=== PATIENT | female | born 2000 | race African-American/Black ===

== ENCOUNTER 2022-11-18 21:22 | Emergency (ER) | payer OTHER ==
[2022-11-18 21:38] VITALS: BMI 32.1
[2022-11-18] MEDS ORDERED: SODIUM CHLORIDE 0.9% 500 ML INFUS.BAG IV ONE (22:00)
[2022-11-18] MEDS ORDERED: FAMOTIDINE 20 MG/50 ML IVPB 20 MG/50 ML MG IVPB ONE ×2 (22:00→23:06)
[2022-11-18] MEDS ORDERED: METOCLOPRAMIDE HCL INJECTION 10 MG/2 ML VIAL IVPUSH ONE (22:00)
[2022-11-18] MEDS ORDERED: METOCLOPRAMIDE HCL INJECTION 10 MG/2 ML VIAL ONE (23:06)
[2022-11-18 23:11] LABS: BASO % 0.3 % (0-2.0); HEMATOCRIT 39.8 % (32.4-45.2); HEMOGLOBIN 13.2 GM/dL (10.7-15.3); LYMPH % 11.3 % (8-40); MCH 23.7 pg (25.7-33.7); MCHC 33.1 g/dl (32.0-36.0); MEAN CELL VOLUME 71.4 fl (80-96); MEAN PLT VOLUME 8.1 fl (7.5-11.1); MONO % 4.5 % (3.8-10.2); NEUT % 83.9 % (42.8-82.8); PLATELET COUNT 273 10^3/uL (134-434); RBC 5.56 M/mm3 (3.60-5.2); RDW 17.2 % (11.6-15.6); WHITE BLOOD COUNT 7.7 K/mm3 (4.0-10.0)
[2022-11-18 23:56] LABS: POTASSIUM 4.1 mmol/L (3.5-5.1)
[2022-11-18 23:59] LABS: CALCIUM 9.6 mg/dL (8.5-10.1)
[2022-11-19] LABS: ALBUMIN 3.6 g/dl (3.4-5.0); BLOOD UREA NITROGEN 5.7 mg/dL (7-18)
[2022-11-19 00:03] LABS: CREATININE 0.6 mg/dL (0.55-1.3)
[2022-11-19 00:04] LABS: BILIRUBIN,TOTAL 0.5 mg/dL (0.2-1)
[2022-11-19 00:05] LABS: TOT PROT 7.4 g/dl (6.4-8.2)
[2022-11-19 00:35] LABS: EPI CELLS >36 /uL (0-25.1); HYALINE CASTS 1 /uL (0-3.1); PH,URINE 5.5 (5.0-8.0); URINE APPEARANCE CLEAR; URINE BACTERIA >9,000 /uL (0-1359); URINE BILIRUBIN NEGATIVE (NEGATIVE); URINE COLOR YELLOW; URINE GLUCOSE (UA) NEGATIVE (NEGATIVE); URINE KETONE 3+ (NEGATIVE); URINE LEUK ESTERASE NEGATIVE (NEGATIVE); URINE NITRITE POSITIVE (NEGATIVE); URINE PROTEIN TRACE (NEGATIVE); URINE RBC 8 /uL (0-23.9); URINE UROBILINOGEN 0.2 mg/dL (0.2-1.0); URINE WBC 21 /uL (0-25.8)
[2022-11-19 02:09] VITALS: RESP 16
[2022-11-19] MEDS ORDERED: CEFTRIAXONE 1 GM/50 ML BAG ONE (05:03)
[2022-11-19 05:53] VITALS: BP 105/51; PULSE 78; TEMP 98.9
== END 2022-11-19 06:15 | disposition home or self-care (01) ==
LOC: JER 21:22
PROC: 3E033GC Introduction of Other Therapeutic Substance into Peripheral Vein, Percutaneous Approach (ICD-10-PCS; principal; 2022-11-18)
PROC: 3E033GC Introduction of Other Therapeutic Substance into Peripheral Vein, Percutaneous Approach (ICD-10-PCS; 2022-11-18)
PROC: 3E033GC Introduction of Other Therapeutic Substance into Peripheral Vein, Percutaneous Approach (ICD-10-PCS; 2022-11-19)
DX: R53.1 Weakness (principal); R11.0 Nausea; O23.41 Unspecified infection of urinary tract in pregnancy, first trimester; O26.891 Other specified pregnancy related conditions, first trimester; R10.84 Generalized abdominal pain; Z3A.01 Less than 8 weeks gestation of pregnancy
CPT/HCPCS: 36415; 76705-TC; 76801-TC; 76815; 80053; 81003; 83690; 84702; 84703; 85025; 87086; 87186; 99284-25

== ENCOUNTER 2022-12-04 12:21 | Emergency (ER) | payer OTHER ==
[2022-12-04 12:26] VITALS: RESP 18; BMI 32.1
[2022-12-04] MEDS ORDERED: FAMOTIDINE 20 MG/50 ML IVPB 20 MG/50 ML MG IVPB ONE ×3 (13:32→18:22)
[2022-12-04 14:26] LABS: BASO % 0.4 % (0-2.0); EOS % 0.3 % (0-4.5); HEMATOCRIT 39.3 % (32.4-45.2); HEMOGLOBIN 13.1 GM/dL (10.7-15.3); LYMPH % 19.3 % (8-40); MCH 23.5 pg (25.7-33.7); MCHC 33.3 g/dl (32.0-36.0); MEAN CELL VOLUME 70.6 fl (80-96); MEAN PLT VOLUME 8.4 fl (7.5-11.1); MONO % 7.4 % (3.8-10.2); NEUT % 72.6 % (42.8-82.8); PLATELET COUNT 281 10^3/uL (134-434); RBC 5.57 M/mm3 (3.60-5.2); RDW 18.1 % (11.6-15.6); WHITE BLOOD COUNT 8.3 K/mm3 (4.0-10.0)
[2022-12-04 14:43] LABS: POTASSIUM 4.1 mmol/L (3.5-5.1)
[2022-12-04 14:45] LABS: CALCIUM 9.8 mg/dL (8.5-10.1)
[2022-12-04 14:46] LABS: ALBUMIN 3.8 g/dl (3.4-5.0); BLOOD UREA NITROGEN 6.1 mg/dL (7-18)
[2022-12-04 14:49] LABS: CREATININE 0.5 mg/dL (0.55-1.3)
[2022-12-04 14:50] LABS: BILIRUBIN,TOTAL 0.3 mg/dL (0.2-1)
[2022-12-04 14:51] LABS: TOT PROT 7.2 g/dl (6.4-8.2)
[2022-12-04 15:26] LABS: EPI CELLS 17 /uL (0-25.1); HYALINE CASTS 4 /uL (0-3.1); PH,URINE 5.5 (5.0-8.0); URINE APPEARANCE CLEAR; URINE BACTERIA 452 /uL (0-1359); URINE BILIRUBIN NEGATIVE (NEGATIVE); URINE COLOR YELLOW; URINE GLUCOSE (UA) NEGATIVE (NEGATIVE); URINE KETONE 3+ (NEGATIVE); URINE LEUK ESTERASE 3+ (NEGATIVE); URINE NITRITE NEGATIVE (NEGATIVE); URINE PROTEIN NEGATIVE (NEGATIVE); URINE RBC 11 /uL (0-23.9); URINE WBC 402 /uL (0-25.8)
[2022-12-04 18:15] VITALS: BP 96/70; PULSE 82; TEMP 97.6
[2022-12-04] MEDS ORDERED: SUCRALFATE 1 GM TABLET (FP) PO ONE (18:57)
[2022-12-04 19:04] LABS: EPI CELLS 15 /uL (0-25.1); HYALINE CASTS 3 /uL (0-3.1); PH,URINE 5.5 (5.0-8.0); URINE APPEARANCE CLEAR; URINE BACTERIA 253 /uL (0-1359); URINE BILIRUBIN NEGATIVE (NEGATIVE); URINE COLOR YELLOW; URINE GLUCOSE (UA) NEGATIVE (NEGATIVE); URINE KETONE 4+ (NEGATIVE); URINE LEUK ESTERASE 2+ (NEGATIVE); URINE NITRITE NEGATIVE (NEGATIVE); URINE PROTEIN NEGATIVE (NEGATIVE); URINE RBC 12 /uL (0-23.9); URINE WBC 350 /uL (0-25.8)
[2022-12-04] MEDS ORDERED: CEPHALEXIN MONOHYDRATE 500 MG CAPSULE (UD) PO ONE (19:08)
[2022-12-04] MEDS ORDERED: CEPHALEXIN MONOHYDRATE 500 MG CAPSULE (UD) ONE (20:23)
[2022-12-04] MEDS ORDERED: SUCRALFATE 1 GM TABLET (FP) ONE (20:23)
== END 2022-12-04 20:30 | disposition home or self-care (01) ==
LOC: JER 12:21
PROC: 3E033GC Introduction of Other Therapeutic Substance into Peripheral Vein, Percutaneous Approach (ICD-10-PCS; principal; 2022-12-04)
DX: O26.891 Other specified pregnancy related conditions, first trimester (principal); O23.41 Unspecified infection of urinary tract in pregnancy, first trimester; R10.13 Epigastric pain; O21.9 Vomiting of pregnancy, unspecified; M54.9 Dorsalgia, unspecified; L02.211 Cutaneous abscess of abdominal wall; Z3A.10 10 weeks gestation of pregnancy
CPT/HCPCS: 36415; 76705-TC; 80053; 81003; 83690; 84702; 85025; 87077; 87086; 99284-25

== ENCOUNTER 2023-04-06 07:20 | Emergency (ER) | payer OTHER ==
[2023-04-06 07:34] VITALS: BMI 27.1
[2023-04-06] MEDS ORDERED: SODIUM CHLORIDE 0.9% 500 ML INFUS.BAG IV ONE (08:51)
[2023-04-06] MEDS ORDERED: FAMOTIDINE 20 MG/50 ML IVPB 20 MG/50 ML MG IVPB ONE ×2 (08:51→08:54)
[2023-04-06] MEDS ORDERED: ONDANSETRON 4 MG/2 ML VIAL IVPUSH ONE (08:51)
[2023-04-06] MEDS ORDERED: ONDANSETRON 4 MG/2 ML VIAL ONE (08:54)
[2023-04-06 09:21] LABS: URINE APPEARANCE CLEAR; URINE BILIRUBIN NEGATIVE (NEGATIVE); URINE COLOR YELLOW; URINE GLUCOSE (UA) NEGATIVE (NEGATIVE); URINE KETONE 1+ (NEGATIVE); URINE LEUK ESTERASE NEGATIVE (NEGATIVE); URINE NITRITE NEGATIVE (NEGATIVE); URINE PROTEIN TRACE (NEGATIVE)
[2023-04-06 09:21] LABS: BASO % 0.8 % (0-2.0); EOS % 0.1 % (0-4.5); HEMATOCRIT 40.2 % (32.4-45.2); HEMOGLOBIN 13.3 GM/dL (10.7-15.3); LYMPH % 14.8 % (8-40); MEAN CELL VOLUME 72.8 fl (80-96); MEAN PLT VOLUME 8.7 fl (7.5-11.1); NEUT % 78.3 % (42.8-82.8); PLATELET COUNT 288 10^3/uL (134-434); RBC 5.53 M/mm3 (3.60-5.2); RDW 16.6 % (11.6-15.6); WHITE BLOOD COUNT 9.1 K/mm3 (4.0-10.0)
[2023-04-06 09:24] LABS: HCG,QUALITATIVE URINE Negative
[2023-04-06 09:49] LABS: POTASSIUM 4.6 mmol/L (3.5-5.1)
[2023-04-06 09:51] LABS: CALCIUM 9.6 mg/dL (8.5-10.1)
[2023-04-06 09:52] LABS: ALBUMIN 3.8 g/dl (3.4-5.0); BLOOD UREA NITROGEN 12.5 mg/dL (7-18)
[2023-04-06 09:54] LABS: CREATININE 0.8 mg/dL (0.55-1.3)
[2023-04-06 09:56] LABS: BILIRUBIN,TOTAL 0.4 mg/dL (0.2-1); TOT PROT 8.5 g/dl (6.4-8.2)
[2023-04-06] MEDS ORDERED: AMOXICILLIN 500 MG CAPSULE (FP) PO ONE (10:20)
[2023-04-06] MEDS ORDERED: AMOXICILLIN 250 MG CAPSULE ONE (10:27)
[2023-04-06 11:55] VITALS: BP 126/84; PULSE 52; RESP 18; TEMP 98.1
== END 2023-04-06 12:19 | disposition home or self-care (01) ==
LOC: JER 07:20
PROC: 3E033GC Introduction of Other Therapeutic Substance into Peripheral Vein, Percutaneous Approach (ICD-10-PCS; principal; 2023-04-06)
PROC: 3E033GC Introduction of Other Therapeutic Substance into Peripheral Vein, Percutaneous Approach (ICD-10-PCS; 2023-04-06)
DX: J02.0 Streptococcal pharyngitis (principal); R51.9 Headache, unspecified; R11.2 Nausea with vomiting, unspecified; Z20.822 Contact with and (suspected) exposure to COVID-19
CPT/HCPCS: 0241U-QW; 36415; 80053; 81003; 83690; 84703; 85025; 87086; 87651; 93005; 93010; 99284-25

== ENCOUNTER 2024-10-24 09:15 | Emergency (ER) | payer OTHER ==
[2024-10-24 09:27] VITALS: BP 113/73; PULSE 80; RESP 16; TEMP 99; BMI 27.4
[2024-10-24] MEDS ORDERED: ACETAMINOPHEN 500 MG TABLET (FP) ONE (09:35)
[2024-10-24] MEDS ORDERED: IBUPROFEN 600 MG TABLET (FP) PO ONE (09:35)
[2024-10-24] MEDS: ACETAMINOPHEN 500 MG TABLET (FP) PO ONE (09:40)
[2024-10-24] MEDS: IBUPROFEN 600 MG TABLET (FP) PO ONE (09:40)
== END 2024-10-24 11:25 | disposition home or self-care (01) ==
LOC: JERFT 09:15
DX: S92.412A Displaced fracture of proximal phalanx of left great toe, initial encounter for closed fracture (principal); S93.401A Sprain of unspecified ligament of right ankle, initial encounter; X50.1XXA Overexertion from prolonged static or awkward postures, initial encounter; Y92.009 Unspecified place in unspecified non-institutional (private) residence as the place of occurrence of the external cause
CPT/HCPCS: 73610-TC-LT-FY; 73610-TC-RT-FY; 73630-TC-LT; 73630-TC-RT-FY; 99284-25